=== PATIENT | male | born 1950 | race Caucasian/White ===

== ENCOUNTER 2021-03-06 09:04 | Emergency (ER) | payer OTHER ==
[2021-03-06 09:29] VITALS: RESP 18; TEMP 98.3
[2021-03-06] MEDS ORDERED: DIPH,PERTUS(ACELL)TETVAC-LF 0.5 ML VIAL IM ONE (09:53)
[2021-03-06] MEDS ORDERED: BACITRACIN OINT 1 EACH PACKET TOPICAL ONE (09:53)
[2021-03-06] MEDS ORDERED: LIDOCAINE 1% INJ 10MG/ML (20 ML MDV) SQ ONE (09:53)
--- NOTE | 2021-03-06 10:43 | ED ---
Wound/Laceration HPI - General Chief Complaint: Wound/Laceration Stated Complaint: [facility] - ear lac Time Seen by Provider: 03/06/21 09:32 Source: patient Mode of arrival: ambulatory Limitations: no limitations - History of Present Illness Initial Comments: Patient is a 70-year-old male presenting to the emergency Department with complaints of injury to his right ear. Patient states about an hour prior to arrival, while at work, he was accidentally hit in the right side of his head, right ear with a large metal beam. Patient denies being on blood thinners. He denies any loss of consciousness. He does have some mild neck discomfort but feels like it is more like a whiplash injury. He does have some pain behind his right ear and above his ear with a beam hit him. His anus, no blurry vision, no chest pain or shortness of breath. He is unsure about his tetanus vaccine. Bleeding is controlled at this time with a bandage. He has no further co mplaints. - Related Data Allergies Allergy/AdvReac Type Severity Reaction Status Date / Time No Known Allergies Allergy Verified 03/06/21 09:23 Review of Systems ROS Statement: Those systems with pertinent positive or pertinent negative responses have been documented in the HPI. ROS Other: All systems not noted in ROS Statement are negative. 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 Patient is nontoxic and in no acute distress. HEAD: Atraumatic, normocephalic. Patient has some mild bruising noted above his right ear and behind his ear. EYES: Pupils equal round and reactive to light, extraocular movements intact, sclera anicteric, conjunctiva are normal. Eyelids were unremarkable. ENT: TMs normal, nares patent, oropharynx clear without exudates. Moist mucous membranes. Patient has a laceration noted to his right ear and external portion as well as internal. NECK: Normal range of motion, supple without lymphadenopathy or JVD. No midline tenderness. LUNGS: Unlabored respirations. Breath sounds clear to auscultation bilaterally and equal. No wheezes rales or rhonchi. HEART: Regular rate and rhythm without murmurs, rubs or gallops. ABDOMEN: Soft, nontender, normoactive bowel sounds. No guarding, no rebound. No masses appreciated. : Deferred MUSCULOSKELETAL: Normal extremities with adequate strength and normal range of motion, no pitting or edema. No clubbing or cyanosis. NEUROLOGICAL: Patient is alert and oriented x 3. Motor and sensory are also intact. Cranial nerves II through XII grossly intact. Symmetrical smile. Normal speech, normal gait. PSYCH: Normal mood, normal affect. SKIN: Warm, Dry, normal turgor, no rashes. Patient has a 0.5 cm laceration noted to the right ear lobe as well as a 1cm, L-shaped laceration noted to the internal portion of the auricle. Limitations: no limitations Course Vital Signs 03/06/21 03/06/21 09:23 12:25 Temperature 98.3 F Pulse Rate 79 82 Respiratory 18 18 Rate Blood Pressure 110/77 112/78 O2 Sat by Pulse 98 98 Oximetry Procedures - Laceration Laceration #1 Consent Obtained: verbal consent Indication: laceration Site: other (Right ear lobe) Size (cm): 0 (0.5cm) Description: linear Depth: simple, single layer Anesthetic Used: lidocaine 1% Anesthesia Technique: local infiltration Amount (mls): 2 Pre-repair: irrigated extensively Type of Sutures: nylon Size of Sutures: 5-0 Number of Sutures: 2 Technique: simple, interrupted Patient Tolerated Procedure: well Laceration #2 Consent Obtained: verbal consent Indication: laceration Site: other (right ear, inside auricle) Size (cm): 1 Description: flap Depth: simple, single layer Anesthetic Used: lidocaine 1% Anesthesia Technique: local infiltration Amount (mls): 2 Pre-repair: irrigated extensively Type of Sutures: nylon Size of Sutures: 5-0 Number of Sutures: 6 Technique: simple, interrupted Patient Tolerated Procedure: well Medical Decision Making - Medical Decision Making Patient is a 70-year-old male here with a contusion to the right side of the right ear as well as 2 separate lacerations of his ear. This happened at work today. He is not on blood thinners. No loss of consciousness. I did do a CT of the C-spine and of brain which revealed no acute intercranial hemorrhage, no acute cervical spine injury. 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 Patient's wounds are cleaned and closed with a total of 8, 5-0 sutures. He tolerated procedure well. We did update his tetanus vaccine as well. He was sutures removed in 7-10 days. He is stable for discharge and in agreement this plan of care. Disposition Clinical Impression: Contusion of right temporofrontal scalp, Laceration of right ear Disposition: HOME SELF-CARE Condition: Stable Instructions (If sedation given, give patient instructions): Care For Your Stit ches (ED) Additional Instructions: Please return to the Emergency Department if symptoms worsen or any other concerns. Keep area clean and dry. Apply topical antibiotic. Stitches need to be removed in 7-10 days as discussed. Is patient prescribed a controlled substance at d/c from ED?: No Referrals: Nonstaff,Physician [Primary Care Provider] - 1-2 days Time of Disposition: 12:19
--- NOTE | 2021-03-06 11:05 | CT ---
EXAMINATION TYPE: CT brain alfredo wo con DATE OF EXAM: 03/06/2021 COMPARISON: None HISTORY: 70-year-old male Right sided injury with pain, ear laceration. CT DLP: 1544.1 mGycm Automated exposure control for dose reduction was used. Technique: Examination of the head was done in axial plane without intravenous contrast. Coronal and sagittal reconstructions performed. CT of the cervical spine was obtained in axial plane without intravenous injection of contrast mater ial. Coronal and sagittal reformatted images were obtained from the axial views for evaluation of f ractures, spinal alignment and canal. FINDINGS: Head: There is no evidence of acute intracranial hemorrhage, acute ischemic changes, mass, mass-effect, or extra-axial fluid collection. There is no effacement of cerebral sulci or basal subarachnoid cister ns. There is no hydrocephalus. There is no midline shift. Bone-white matter distinction is preserv ed. Leftward nasal septal deviation. Moderate mucosal thickening anterior ethmoid air cells. Mastoid air cells well pneumatized. Cervical spine: No craniocervical junction abnormality, predental space widening, or prevertebral soft tissue swellin g. Grade 1 anterolisthesis at C7-T1 secondary to hypertrophic facet arthropathy. Uncovertebral joint art hropathy lower cervical spine with moderate degenerative disc disease C6-C7. Mild spinal canal narrow ing at this level from discussed by complex. There is no acute fracture seen of the cervical spine. Changes result in variable mild to moderate neuroforaminal stenoses. More moderate to severe on the l eft at C5-C6 and moderate on the right at C6/C7. There is bovine configuration to the aortic arch. Aneurysmal/ectatic appearance to the common origin measuring up to 2.7 cm. Sagittal and coronal reformatted images confirm above findings. COMBINED IMPRESSION: 1. No acute intracranial abnormality seen. 2. No acute fracture of the cervical spine. Mild to moderate spondylotic changes especially lower cer vical spine with degenerative grade 1 anterolisthesis at C7-T1. 3. 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
[2021-03-06 12:27] VITALS: BP 112/78; PULSE 82
== END 2021-03-06 12:25 | disposition home or self-care (01) ==
LOC: EC 09:04
DX: S01.311A Laceration without foreign body of right ear, initial encounter (principal); E78.5 Hyperlipidemia, unspecified; I10 Essential (primary) hypertension; Z90.81 Acquired absence of spleen; Z90.3 Acquired absence of stomach [part of]; W26.9XXA Contact with unspecified sharp object(s), initial encounter
CPT/HCPCS: 99283; 90471; 12011; 72125; 70450; 90715; J2001